=== PATIENT | female | born 1965 | race Caucasian/White ===

== ENCOUNTER 2017-04-26 15:57 | Emergency (ER) | payer OTHER, BC, SELFPAY ==
[2017-04-26 15:58] VITALS: BP 193/117; PULSE 63; RESP 18; TEMP 36.1; O2SAT 99; BMI 51.2
--- NOTE | 2017-04-26 16:07 | ED.RN ---
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 BEHZAD FROM [facility] NOTIFIED.
--- NOTE | 2017-04-26 16:33 | ED.DCSUM_ITS ---
- ER Visit Summary Date of Service: 04/26/17 Chief Complaint: Exposed to exhaust fumes History of Present Illness: The patient is a 51 F who was at work today when she noted a strong smell of diesel fumes. She states she felt short of breath and nauseated. Symptoms are improving since she was removed from that environment. She is exposed to this environment for less than 2 hours. She does not know of anyone else having symptoms. She is a history of diabetes, hypertension, high cholesterol. She does not have chronic respiratory illness. Physical Examination: Blood pressure is 193/117, otherwise vitals are normal. Her oxygen saturation is 99% on room air. Head neck examination is normal. Heart is regular rate and rhythm. Lung sounds are clear bilaterally. Abdomen is soft, obese, nontender. Test Results: Carboxy hemoglobin level is normal at 0.6. Two-view chest x-ray is normal. Emergency Department Course and Treatment: Patient was given Zofran for nausea. She was placed on nasal cannula oxygen for comfort only. Repeat evaluation she states her symptoms are completely resolved. Treatment Plan: [] Disposition: Discharge Impression: Dyspnea following exposure to fumes, resolved This note was generated with [employer] dictation software. It may contain incorrect words, spelling, and punctuation that were not noted in review of the chart prior to signing ED Disposition - Plan for ED Patient: Chief Complaint: General Illness Referrals: Thong Rm DO [Primary Care Provider] -
[2017-04-26] MEDS: Ondansetron ODT 4 MG Tablet PO (16:35)
[2017-04-26 16:47] LABS: Carboxyhemoglobin Frac (CO) 0.6 % (0.0-1.5)
--- NOTE | 2017-04-26 16:50 | RAD_ITS ---
STUDY: X-RAY CHEST REASON FOR EXAM: Female, 51 years old. Lightheaded TECHNIQUE: Frontal and lateral views of the chest COMPARISON: None. FINDINGS: The lungs are clear. There are no pleural effusions. There is no pneumothorax. The heart is normal in size. The visualized osseous structures are within normal limits. RAD/Chest PA and Lateral IMPRESSION: No acute thoracic pathology. Electronically Signed: Rashawn Galvin, at 17:30 EST Tel , Service support ,
--- NOTE | 2017-04-26 17:46 | ED.DEP ---
ED Disposition - Plan for ED Patient: Disposition: Home or Assisted Living Chief Complaint: General Illness Instructions: ED Inhalation Chemical Referrals: [facility] [GROUP OF PHYSICIANS] - 3-5 Days
[2017-04-26 17:56] VITALS: PULSE 62; RESP 18; O2SAT 97
== END 2017-04-26 18:22 | disposition home or self-care (01) ==
PROVIDERS: Emergency Provider Emergency Medicine; Family Provider Family Medicine; PCP Family Medicine
DX: R06.00 Dyspnea, unspecified (principal); Z57.5 Occupational exposure to toxic agents in other industries; E66.9 Obesity, unspecified; I10 Essential (primary) hypertension; Z79.899 Other long term (current) drug therapy
CPT/HCPCS: 71046; 82375; 99283

== ENCOUNTER → 2017-05-02 11:30 | Outpatient (CLI) | payer BC, SELFPAY ==
[2017-05-02 13:50] LABS: Hemoglobin A1c 7.1 % (4.2-6.3)
[2017-05-02 13:53] LABS: Vitamin B12 225 pg/mL (211-911)
[2017-05-02 13:55] LABS: Rheumatoid Factor < 10.0 IU/mL (<15); Thyroid Stim Hormone (TSH) 5.36 uIU/mL (0.358-3.74)
[2017-05-05 14:07] LABS: SJOGREN'S Anti-SS-A test < 0.2 AI (0.0-0.9); SJOGREN'S Anti-SS-B test < 0.2 AI (0.0-0.9)
[2017-05-05 14:17] LABS: ANTINUCLEAR ANTIBODIES DIRECT Negative (Negative)
[2017-05-06 16:09] LABS: Albumin 3.5 g/dL (2.9-4.4); Albumin, Ur 22.3 % (.); Alpha-1-Globulin, Ur 5.2 % (.); Alpha-1-Globulins 0.2 g/dL (0.0-0.4); Alpha-2-Globulins 0.9 g/dL (0.4-1.0); Alpha-2-Globulins, Ur 13.5 % (.); Beta Globulin, Ur 23.8 % (.); Cytoplasmic Ab (C-ANCA) <1:20 titer (Neg:<1:20); Gamma Globulin 0.9 g/dL (0.4-1.8); Gamma Globulin, Ur 35.3 % (.); Immunoglobulin A 387 mg/dL (87-352); Immunoglobulin G 857 mg/dL (700-1600); Immunoglobulin M 37 mg/dL (26-217); M-Spike, Ur % Not Observed % (Not Observed)
[2017-05-06 16:44] LABS: ARSENIC (TOTAL), URINE 11 ug/L (0-50); Creatinine, Urine 0.51 g/L (0.30-3.00); Perinuclear Ab (P-ANCA) <1:20 titer (Neg:<1:20)
== END ==
PROVIDERS: Family Provider Family Medicine; PCP Family Medicine; Visit Provider Psychiatry & Neurology Neurology
DX: G62.9 Polyneuropathy, unspecified (principal)
CPT/HCPCS: 82175; 82570; 82607; 82784; 83036; 83655; 83825; 84165; 84166; 84443; 86038; 86235; 86256; 86334; 86335; 86431

== ENCOUNTER → 2017-05-08 07:00 | Outpatient (CLI) | payer BC, SELFPAY ==
--- NOTE | 2017-05-08 07:03 | MRI_ITS ---
STUDY: MRI LUMBAR SPINE WITHOUT CONTRAST REASON FOR EXAM: Female, 51 years old. radiculopathy, burning/pain legs and feet; right more than left. TECHNIQUE: Standardized fat and water weighted pulse sequences were obtained in the sagittal and axial planes. COMPARISON: None FINDINGS: T12-L1: Normal endplates. Normal disc height, hydration and morphology. Normal bilateral facet joints. Normal central canal and bilateral lateral recesses. Normal bilateral intervertebral neural foramina. Normal lumbar lordosis. There is no substantial scoliosis. Normal conus medullaris that terminates at the T12/L1 L1-2: Normal endplates. Normal disc height, hydration and morphology. Normal bilateral facet joints. Normal central canal and bilateral lateral recesses. Normal bilateral intervertebral neural foramina. L2-3: Normal endplates. Normal disc height, hydration and morphology. Normal bilateral facet joints. Normal central canal and bilateral lateral recesses. Normal bilateral intervertebral neural foramina. L3-4: There is minimal disc space narrowing and endplate spondylosis. There is a minimal disc bulge and facet arthropathy without significant central canal or foraminal stenosis. L4-5: Normal endplates. Normal disc height, hydration and morphology. Normal bilateral facet joints. Normal central canal and bilateral lateral recesses. Normal bilateral intervertebral neural foramina. L5-S1: There is severe disc space narrowing and endplate spondylosis with Modic type 2 changes. There is spondylolysis with a grade 2 anterolisthesis and mild disc uncovering without the significant central canal stenosis. There is moderate right and mild foraminal craniocaudal stenosis however. Normal visualized sacral ala. Normal visualized paraspinous soft tissue structures. MRI/Spine Lumbar (Routine) IMPRESSION: L5/S1: Spondylolysis with grade 2 anterolisthesis. Moderate right and mild left thrombosis. Electronically Signed: Edin Dickson MD at 14:33 EST Tel , Service support ,
== END ==
PROVIDERS: Family Provider Family Medicine; PCP Family Medicine; Visit Provider Psychiatry & Neurology Neurology
DX: M54.16 Radiculopathy, lumbar region (principal)
CPT/HCPCS: 72148

== ENCOUNTER → 2017-09-02 16:10 | Outpatient (CLI) | payer BC, SELFPAY ==
--- NOTE | 2017-09-02 16:10 | EMB_PTH ---
PATIENT: ZAIRA CARPENTER LOC: [facility] U#:[id number] AGE/SX: 59/F ROOM: RE09/02/[address]: Dr. Valentino Mercado MD : 1965 BED: DIS: SPEC #: [id number] RECD: 09/02/17 20:22 STATUS: NIK RECalvin #: [id number] LLOYD: 09/02/17 16:[address]: Valentino Mercado DEPT: SURGICAL PATHOLOGY RECD BY: Lebron Forde ENTERED: 09/04/17 08:06 SP TYPE: ENDOM BX/C ARISTEO DR: Dr. Thong Rm DO Tissues: Endometrium, NOS Procedures: Surgery Specimen Level IV HEADER OPERATION: Endometrial biopsy PRE-OP DIAGNOSIS: Postmenopausal bleeding TISSUE SUBMITTED: Endometrial biopsy MICROSCOPIC DIAGNOSIS Endometrium, biopsy: Mildly disordered proliferative endometrium. AM:mirta 09/05/17 MICROSCOPIC DESCRIPTION Slides are reviewed. GROSS DESCRIPTION Received in fixative is one container labeled with the patient's name and designated endometrial biopsy. The specimen consists of multiple irregular fragments of dark brown-ron soft tissue that in aggregate measure 3 x 2.5 x 0.4 cm. The specimen is totally submitted in one cassette. / RY:mirta 09/04/17 TC:5 CPT: 53405
== END ==
PROVIDERS: Family Provider Family Medicine; PCP Family Medicine; Visit Provider Obstetrics & Gynecology
DX: N95.0 Postmenopausal bleeding (principal)
CPT/HCPCS: 88305